=== PATIENT | male | born 1980 | race Caucasian/White ===

== ENCOUNTER 2018-05-08 21:28 | Emergency (ER) | payer OTHER ==
[~2018-05-08] VITALS: Ht 175.3 cm; Wt 93.0 kg
[~2018-05-08 21:28] MED LIST: ALBU90OI INH; Bactrim Ds Tab1 EACH PO; CEPH500 PO; PRED20 PO; Percocet 5-3251 EACH PO; SULTRIDS PO; Ultram50 MG PO
[2018-05-08] MEDS ORDERED: Bactrim Ds Tab1 EACH PO (22:57)
[2018-05-08] MEDS ORDERED: CEPH500 PO (22:57)
== END 2018-05-08 23:12 | disposition home or self-care (01) ==
LOC: ER 21:28
DX: L03.032 Cellulitis of left toe (principal); L03.116 Cellulitis of left lower limb; Z79.899 Other long term (current) drug therapy
CPT/HCPCS: 99283